=== PATIENT | female | born 1975 | race Caucasian/White ===

== ENCOUNTER 2022-07-10 15:02 | Emergency (ER) | payer OTHER ==
[~2022-07-10] VITALS: Ht 160 cm; Wt 62.6 kg
[2022-07-10 16:56] LABS: BASO % 0.5 % (0.0-1.0); EOS # 0.1 10^3/uL (0.0-0.5); EOS % 1.2 % (0.0-3.0); HEMATOCRIT 38.5 % (36.0-47.0); HEMOGLOBIN 12.6 g/dl (12.0-15.5); LYMPH # 1.9 10^3/uL (1.5-5.0); LYMPH % 29.6 % (24.0-44.0); MEAN CORPUSCULAR HEMOGLOBIN 29.3 pg (27.0-33.0); MEAN CORPUSCULAR HGB CONC 32.7 g/dl (32.0-36.5); MEAN CORPUSCULAR VOLUME 89.5 fl (80.0-96.0); MONO # 0.4 10^3/uL (0.0-0.8); MONO % 5.8 % (2.0-8.0); NEUTROPHILS # 4.1 10^3/uL (1.5-8.5); NEUTROPHILS % 62.6 % (36.0-66.0); PLATELET COUNT, AUTOMATED 224 10^3/uL (150-450); WHITE BLOOD COUNT 6.6 10^3/uL (4.0-10.0)
[2022-07-10 17:20] LABS: LIPASE 36 U/L (12-53)
[2022-07-10 17:25] LABS: HCG, SERUM QUALITATIVE NEGATIVE (NEGATIVE)
[2022-07-10 17:27] LABS: ALBUMIN 3.8 G/DL (3.2-5.2); ALKALINE PHOSPHATASE 54 U/L (46-116); ALT/SGPT 19 U/L (7.0-40); AST/SGOT 24 U/L (<34); BILIRUBIN,DIRECT < 0.1 MG/DL (<0.4); BILIRUBIN,TOTAL 0.3 MG/DL (0.3-1.2); BLOOD UREA NITROGEN 10 MG/DL (9-23); CALCIUM LEVEL 9.2 MG/DL (8.5-10.1); CARBON DIOXIDE LEVEL 30 MMOL/L (20-31); CHLORIDE LEVEL 103 MMOL/L (98-107); CREATININE FOR GFR 0.63 MG/DL (0.55-1.30); FREE T4 0.87 NG/DL (0.89-1.76); GLOMERULAR FILTRATION RATE > 60.0 (>58); GLUCOSE, FASTING 86 MG/DL (60-100); MAGNESIUM LEVEL 1.9 MG/DL (1.8-2.4); POTASSIUM SERUM 3.8 MMOL/L (3.5-5.1); SODIUM LEVEL 139 MMOL/L (136-145); THYROID STIMULATING HORMONE 0.954 uIU/ML (0.55-4.78); TOTAL PROTEIN 7.1 G/DL (5.7-8.2)
[2022-07-10 17:32] LABS: CPK CREATINE PHOSPHOKINASE 79 U/L (34-145); MB/CK RELATIVE INDEX 1.26 (< OR =4)
[2022-07-10] MEDS ORDERED: ISOVUE-370 76% 100ML VIAL As Ordered ONE (17:52)
[2022-07-10] MEDS ORDERED: HOLTER MONITOR XX (19:31)
[2022-07-10 19:51] VITALS: BP 137/69
== END 2022-07-10 19:52 | disposition home or self-care (01) ==
LOC: M ED 15:02
DX: R07.9 Chest pain, unspecified (principal); R00.2 Palpitations; I10 Essential (primary) hypertension; Z88.2 Allergy status to sulfonamides
CPT/HCPCS: 36415; 71045; 71275; 80048; 80076; 82550; 82553; 83690; 83735; 84439; 84443; 84484; 84703; 85025; 93005; 99284; Q9967

== ENCOUNTER → 2023-11-16 | Outpatient (CLI) | payer OTHER ==
[~2023-11-16] MED LIST: HOLTER MONITOR XX
== END ==
LOC: M EKG 15:17
PROVIDERS: ATTEND Student in an Organized Health Care Education/Training Program
DX: R00.1 Bradycardia, unspecified (principal)